=== PATIENT | female | born 1995 | race Caucasian/White ===

== ENCOUNTER 2017-10-31 12:31 | Emergency (ER) | payer OTHER ==
[2017-10-31 13:17] VITALS: BP 110/63
--- NOTE | 2017-10-31 13:19 | UC ---
General HPI - HPI Summary HPI Summary: pt c/o bodyaches 2 days ago and now has watery eyes, runny nose, plugged ears and sneezing. denies fever or sob. - History of Current Complaint Stated Complaint: COUGH/SINUS/ACHES Time Seen by Provider: 10/31/17 13:13 Hx Obtained From: Patient Onset/Duration: Gradual Onset Timing: Constant Aggravating: nothing Alleviating: nothing Associated Signs & Symptoms: Negative: Cough, Fever, SOB - Allergy/Home Medications Allergies/Adverse Reactions: Allergies Allergy/AdvReac Type Severity Reaction Status Date / Time No Known Allergies Allergy Verified 10/31/17 13:17 Home Medications: Home Medications NK [No Home Medications Reported] 10/31/17 [History Confirmed 10/31/17] PMH/Surg Hx/FS Hx/Imm Hx Respiratory History: Asthma - Surgical History Surgical History: None - Family History Known Family History: Positive: Other - allergies - Social History Occupation: Employed Full-time Lives: With Family Alcohol Use: Occasionally Substance Use Type: None Smoking Status (MU): Never Smoked Tobacco - Immunization History Vaccination Up to Date: Yes Review of Systems Constitutional: Negative Skin: Negative Eyes: Drainage - watery ENT: Nasal Discharge, Sinus Congestion Respiratory: Negative Cardiovascular: Negative Gastrointestinal: Negative Genitourinary: Negative Motor: Negative Neurovascular: Negative Musculoskeletal: Myalgia Neurological: Negative Psychological: Negative Is Patient Immunocompromised?: No All Other Systems Reviewed And Are Negative: Yes Physical Exam Triage Information Reviewed: Yes Appearance: Well-Appearing Vital Signs Reviewed: Yes Eyes: Positive: Conjunctiva Clear ENT: Positive: Pharynx normal, Nasal congestion, Nasal drainage - clear, TMs normal Neck: Positive: Supple, Nontender, No Lymphadenopathy Respiratory: Positive: Lungs clear, Normal breath sounds Cardiovascular: Positive: RRR, No Murmur Abdomen Description: Positive: Nontender, No Organomegaly, Soft Bowel Sounds: Positive: Present Musculoskeletal: Positive: ROM Intact Neurological: Positive: Alert Psychological: Positive: Age Appropriate Behavior Skin Exam: Normal Course/Dx - Course Course Of Treatment: non toxic. nothing to indicate antibiotic tx. most likely allergies. will suggest zyrtec-d - Differential Dx - Multi-Symptom Provider Diagnoses: acute congestion. probable allergies Discharge - Sign-Out/Discharge Documenting (check all that apply): Discharge/Admit/Transfer - Discharge Plan Condition: Critical Disposition: HOME Patient Education Materials: Allergies (ED) Forms: *Work Release Referrals: Malcom Hernandez MD [Primary Care Provider] - 7 Days Additional Instructions: CONSIDER STARTING ZYRTEC D - Billing Disposition and Condition Condition: CRITICAL Disposition: Home
== END 2017-10-31 13:57 | disposition home or self-care (01) ==
LOC: UCCORT 12:31
DX: R09.89 Other specified symptoms and signs involving the circulatory and respiratory systems (principal); H57.8 Other specified disorders of eye and adnexa
CPT/HCPCS: 99211; G0463

== ENCOUNTER 2023-05-20 02:14 | Inpatient (IN) ==
[2023-05-20] MEDS ORDERED: Lidocaine 1% VIAL 10 MG/ML 30 ML VIAL INJ PRN (03:41)
[2023-05-20] MEDS ORDERED: Lactated Ringers 1000 ml BAG 1,000 ML IV ONE ×2 (03:41→15:06)
[2023-05-20 06:12] LABS: ABS Lymphocytes 1.9 10^3/uL (1.0-4.8); ABS Monocytes 0.5 10^3/uL (0.0-0.9); ABS Neutrophils 8.8 10^3/uL (1.5-7.6); Eosinophil % 0.3 %; Hematocrit 30.5 % (35-45); Hemoglobin 10.4 g/dL (11.5-14.3); Mean Corpuscular Hemoglobin 29.3 pg (27-33); Mean Corpuscular Hgb Conc 33.9 g/dL (31-36); Mean Corpuscular Volume 86.5 fL (80-97); Mean Platelet Volume 10.4 fL (7.5-11.2); Platelet Count 123 10^3/uL (150-450); Red Blood Count 3.53 10^6/uL (3.63-4.92); Red Cell Distribution Width 14.7 % (12-17); White Blood Count 11.3 10^3/uL (3.8-11.8)
[2023-05-20 06:43] LABS: Urine Benzodiazepine Screen None Detected (None Detect); Urine Cannabinoids Screen None Detected (None Detect); Urine Opiates Screen None Detected (None Detect)
[2023-05-20] MEDS ORDERED: miSOPROStol 100 mcg TAB PO ONE (09:11)
[2023-05-20] MEDS: OBEPIDURAL (200 ML) 200 ML EPIDURAL SCH (14:15)
[2023-05-20] MEDS: Lactated Ringers 1000 ml BAG 1,000 ML IV SCH ×2 (14:20→16:50)
[2023-05-20] MEDS ORDERED: OBEPIDURAL (200 ML) 200 ML EPIDURAL ONE (14:26)
[2023-05-20] MEDS ORDERED: Lidocaine 1.5% EPI 1:200,000 30 ML SDV ONE (14:26)
[2023-05-20] MEDS ORDERED: Sodium Citrate/Citric Acid LIQ 15 ML UDC PO PRN (15:06)
[2023-05-20] MEDS ORDERED: Phenylephrine 40 mcg/mL 10mL (400mcg) SYRINGE IV PUSH PRN ×2 (15:06)
[2023-05-20] MEDS ORDERED: Oxytocin in LR 20,000 MILLI.UNIT/1,000 ML BAG IV SCH (16:00)
[2023-05-20 17:26] LABS: Urine Appearance Clear; Urine Bilirubin Negative (Negative); Urine Blood Negative (Negative); Urine Color Yellow; Urine Glucose Negative (Negative); Urine Ketones Trace (Negative); Urine Nitrite Negative (Negative); Urine Protein 1+(30 mg/dL) (Negative); Urine Specific Gravity 1.019 (1.002-1.030); Urine Urobilinogen Negative (Negative)
[2023-05-20 17:36] LABS: Urine Bacteria Absent (Absent); Urine Red Blood Cell Trace(0-2/hpf) (Absent); Urine Squamous Epithelial Cell Present (Absent); Urine White Blood Cell Trace(0-5/hpf) (Absent)
[2023-05-21] MEDS: Lactated Ringers 1000 ml BAG 1,000 ML IV SCH ×2 (04:23→06:00)
[2023-05-21] MEDS: OBEPIDURAL (200 ML) 200 ML EPIDURAL SCH (05:08)
[2023-05-21] MEDS ORDERED: ceFOXitin 2 GM IVPREMIX 2 GM/50 ML BAG IVPB ONE (10:34)
[2023-05-21] MEDS ORDERED: Lidocaine 2% w/ EPI 1:200,000 MPF 20 ML SDV VIAL ONE (10:35)
[2023-05-21] MEDS ORDERED: ceFAZolin 2 GM PREMIX 0 GM/0 ML BAG ONE (10:48)
[2023-05-21] MEDS ORDERED: ceFOXitin 2 GM IVPREMIX 2 GM/50 ML BAG ONE (11:09)
[2023-05-21] MEDS ORDERED: Methylergonovine 0.2 mg AMPULE 1 ml AMP ONE (11:59)
[2023-05-21] MEDS ORDERED: Ondansetron 4 mg VIAL 2 MG/ML 2 ml VIAL ONE (12:21)
[2023-05-21] MEDS ORDERED: Naloxone 0.4 mg VIAL 0.4 mg/ml 1 ml VIAL IV PUSH PRN (12:57)
[2023-05-21] MEDS ORDERED: Metoclopramide 5 MG/ML VIAL (10 mg) IV PRN (12:57)
[2023-05-21] MEDS ORDERED: Ondansetron 4 mg VIAL 2 MG/ML 2 ml VIAL IV PRN (12:57)
[2023-05-21] MEDS ORDERED: Acetaminophen IV 1 GM/100ML 1,000 MG/100 ML BAG IV PRN (12:57)
[2023-05-21] MEDS ORDERED: Glycerin ADULT 2.4 gm SUPP PR PRN (13:17)
[2023-05-21] MEDS ORDERED: Witch Hazel PAD JAR TOPICAL PRN (13:17)
[2023-05-21] MEDS ORDERED: Methylergonovine 0.2 mg AMPULE 1 ml AMP IM ONE (13:17)
[2023-05-21] MEDS ORDERED: Oxytocin in LR 20,000 MILLI.UNIT/1,000 ML BAG IV SCH (13:20)
[2023-05-21] MEDS ORDERED: Lactated Ringers 1000 ml BAG 1,000 ML IV SCH (14:00)
[2023-05-22 07:58] LABS: ABS Lymphocytes 1.2 10^3/uL (1.0-4.8); ABS Monocytes 0.7 10^3/uL (0.0-0.9); ABS Neutrophils 13.1 10^3/uL (1.5-7.6); Eosinophil % 0.1 %; Hemoglobin 9.1 g/dL (11.5-14.3); Lymphocyte % 7.8 %; Mean Corpuscular Hemoglobin 29.6 pg (27-33); Mean Corpuscular Hgb Conc 33.6 g/dL (31-36); Mean Corpuscular Volume 88.1 fL (80-97); Platelet Count 148 10^3/uL (150-450); Red Blood Count 3.07 10^6/uL (3.63-4.92)
[2023-05-23 07:26] VITALS: BP 133/81
== END 2023-05-23 12:25 | disposition home or self-care (01) | DRG 540 ==
LOC: MCHOBOUT 02:14 → MCHOB 03:48
PROVIDERS: ADMIT Midwife; ATTEND Obstetrics & Gynecology